=== PATIENT | female | born 1960 | race Caucasian/White ===

== ENCOUNTER 2017-10-03 19:41 | Inpatient (IN) | payer OTHER ==
[~2017-10-03] VITALS: Ht 172.7 cm; Wt 96.9 kg
[2017-10-03 21:04] VITALS: BP 187/87; PULSE 133; RESP 28; TEMP 101.8; O2SAT 94
[2017-10-03 21:07] VITALS: BP 187/87; PULSE 133; RESP 28; TEMP 101.8; O2SAT 94
[2017-10-03 21:37] VITALS: PULSE 125; RESP 28; O2SAT 94
--- NOTE | 2017-10-03 22:29 | PD ---
HPI Chief Complaint: Cold / Flu Symptoms Time Seen by Provider: 22:21 Travel History International Travel<30 days: No Contact w/Intl Traveler<30days: No Traveled to known affect area: No History of Present Illness HPI The patient is a 57-year-old female that complains of a cough, upper airway congestion, fever and sore throat for 24 hours. The fever is generally and low- grade. She is slightly short of breath and has noted wheezing at home. She denies any chest pain. She has a mild, bifrontal/retro-orbital, gradual onset headache. [facility] Past Medical History Diminished Hearing: No Influenza Vaccination: Yes ?: Not Past Surgical History Cholecystectomy: Yes Gynecologic Surgery: Yes (tubal) Social History Alcohol Use: Yes (social) Tobacco Use: No Substance Use: No Allergies-Medications (Allergen,Severity, Reaction): Coded Allergies: amoxicillin (Verified Allergy, Severe, 10/03/17) Review of Systems Except as stated in HPI: all other systems reviewed are Neg Physical Exam Narrative GENERAL: The patient is alert, oriented 3 in moderate apparent distress with her cough and sore throat. Her vital signs show blood pressure 187/87 with heart rate of 133 and respirations 28. SKIN: Focused skin assessment warm/dry. HEAD: Atraumatic. Normocephalic. EYES: Pupils equal and round. No scleral icterus. No injection or drainage. ENT: No nasal bleeding or discharge. Mucous membranes pink and moist. NECK: Trachea midline. No JVD. CARDIOVASCULAR: Regular rate and rhythm. No murmur appreciated. RESPIRATORY: No accessory muscle use. A few scattered wheezes are heard bilaterally. Breath sounds equal bilaterally. GASTROINTESTINAL: Abdomen soft, non-tender, nondistended. Hepatic and splenic margins not palpable. MUSCULOSKELETAL: No obvious deformities. No clubbing. No cyanosis. No edema. NEUROLOGICAL: Awake and alert. No obvious cranial nerve deficits. Motor grossly within normal limits. Normal speech. PSYCHIATRIC: Appropriate mood and affect; insight and judgment normal. Data Data Last Documented VS Vital Signs Date Time Temp Pulse Resp B/P (MAP) Pulse Ox O2 Delivery O2 Flow Rate FiO2 10/03/17 22:45 97 Nasal Cannula 2.00 10/03/17 22:42 10/03/17 21:37 125 28 10/03/17 21:07 101.8 Orders Orders Sepsis Workup Initiated (10/03/17 ) Complete Blood Count With Diff (10/03/17 22:21) Comprehensive Metabolic Panel (10/03/17 22:21) Lactic Acid Sepsis Protocol (10/03/17 22:21) Lipase (10/03/17 22:21) Troponin I (10/03/17 22:21) Urinalysis - C+S If Indicated (10/03/17 22:21) Influenzae A/B Antigen (10/03/17 22:21) Blood Culture (10/03/17 22:21) Chest, Pa & Lat (10/03/17 22:21) Blood Glucose (10/03/17 22:21) Ecg Monitoring (10/03/17 22:21) Iv Access Insert/Monitor (10/03/17 22:21) Oximetry (10/03/17 22:21) Oxygen Administration (10/03/17 22:21) Albuterol-Ipratropium Neb (Duoneb Neb) (10/03/17 22:30) Sodium Chlor 0.9% 1000 Ml Inj (Ns 1000 M (10/03/17 22:45) B-Type Natriuretic Peptide (10/03/17 22:32) Group A Rapid Strep Screen (10/03/17 22:33) Strep Culture (Group A) (10/03/17 22:31) Urine Culture (10/03/17 22:28) Oseltamivir (Tamiflu) (10/03/17 23:30) Ketorolac Inj (Toradol Inj) (10/04/17 00:00) Acetaminophen (Tylenol) (10/04/17 00:00) Oseltamivir (Tamiflu) (10/04/17 09:00) Levofloxacin 750 Mg Premix Inj (Levaquin (10/04/17 00:30) Admit To Inpatient (10/04/17 ) Vital Signs (Adult) Q4H (10/04/17 00:20) Activity Oob With Assistance (10/04/17 00:20) Professional Healthcare Representative / Telemetry .CONTINUOUS (10/04/17 00:20) Intake + Output PAKO.QSHIFT (10/04/17 00:20) Diet Regular Basic (10/04/17 Breakfast) Sodium Chlor 0.9% 1000 Ml Inj (Ns 1000 M (10/04/17 00:20) Sodium Chloride 0.9% Flush (Ns Flush) (10/04/17 00:30) Sodium Chloride 0.9% Flush (Ns Flush) (10/04/17 09:00) Ondansetron Inj (Zofran Inj) (10/04/17 00:30) Comprehensive Metabolic Panel (10/05/17 06:00) Complete Blood Count With Diff (10/05/17 06:00) Scd Bilateral/Knee High PAKO.BID (10/04/17 00:20) Ken Bilateral/Knee High PAKO.QSHIFT (10/04/17 00:23) Acetaminophen (Tylenol) (10/04/17 00:30) Acetamin-Hydrocod 325-5 Mg ([place] 5-325 (10/04/17 00:30) Acetamin-Hydrocod 325-10 Mg ([place] 10-32 (10/04/17 00:30) Docusate Sodium-Senna (Bridget-Colace) (10/04/17 09:00) Magnesium Hydroxide Liq (Milk Of Magnesi (10/04/17 00:30) Sennosides (Senokot) (10/04/17 00:30) Bisacodyl Supp (Dulcolax Supp) (10/04/17 00:30) Lactulose Liq (Lactulose Liq) (10/04/17 00:30) Inpatient Certification (10/04/17 ) Albuterol-Ipratropium Neb (Duoneb Neb) (10/04/17 00:30) Admit Order (Ed Use Only) (10/04/17 00:21) Labs Laboratory Tests Test 10/03/17 22:28 White Blood Count 7.4 TH/MM3 Red Blood Count 4.45 MIL/MM3 Hemoglobin 12.9 GM/DL Hematocrit 38.5 % Mean Corpuscular Volume 86.6 FL Mean Corpuscular Hemoglobin 29.0 PG Mean Corpuscular Hemoglobin Concent 33.5 % Red Cell Distribution Width 13.5 % Platelet Count 253 TH/MM3 Mean Platelet Volume 8.9 FL Neutrophils (%) (Auto) 78.9 % Lymphocytes (%) (Auto) 8.9 % Monocytes (%) (Auto) 8.7 % Eosinophils (%) (Auto) 2.9 % Basophils (%) (Auto) 0.6 % Neutrophils # (Auto) 5.9 TH/MM3 Lymphocytes # (Auto) 0.7 TH/MM3 Monocytes # (Auto) 0.6 TH/MM3 Eosinophils # (Auto) 0.2 TH/MM3 Basophils # (Auto) 0.0 TH/MM3 CBC Comment DIFF FINAL Differential Comment Urine Color ORANGE Urine Turbidity CLEAR Urine pH 8.0 Urine Specific [place] 1.016 Urine Protein TRACE mg/dL Urine Glucose (UA) NEG mg/dL Urine Ketones NEG mg/dL Urine Occult Blood NEG Urine Nitrite POS Urine Bilirubin NEG Urine Leukocyte Esterase NEG Urine RBC 4-9 /hpf Urine WBC 3-5 /hpf Urine WBC Clumps FEW Urine Squamous Epithelial Cells 0-5 /hpf Microscopic Urinalysis Comment CATH-CULTURE IND Blood Urea Nitrogen 13 MG/DL Creatinine 0.86 MG/DL Random Glucose 94 MG/DL Total Protein 8.0 GM/DL Albumin 3.9 GM/DL Calcium Level 8.8 MG/DL Alkaline Phosphatase 73 U/L Aspartate Amino Transf (AST/SGOT) 32 U/L Alanine Aminotransferase (ALT/SGPT) 51 U/L Total Bilirubin 0.6 MG/DL Sodium Level 136 MEQ/L Potassium Level 3.4 MEQ/L Chloride Level 102 MEQ/L Carbon Dioxide Level 25.6 MEQ/L Anion Gap 8 MEQ/L Estimat Glomerular Filtration Rate 68 ML/MIN Lactic Acid Level 1.3 mmol/L Troponin I LESS THAN 0.02 NG/ML B-Type Natriuretic Peptide 25 PG/ML Lipase 101 U/L MDM Medical Decision Making Medical Screen Exam Complete: Yes Emergency Medical Condition: Yes Medical Record Reviewed: Yes Differential Diagnosis Sepsis, pneumonia, bronchitis, bronchospasm, nonspecific viral illness, flu syndrome, electrolyte disorder, hypo-/hyperglycemia Narrative Course The patient has sepsis and flu syndrome. The patient would not do well at home , she is staying in a condo and does not have a nebulizer machine. She will need a nebulizer machine and likely oxygen. She also is somewhat dehydrated and will need IV fluids, she is unlikely to replace her fluids with by mouth. Sepsis Criteria SIRS Criteria (2 or more): Temp > 100.9 or < 96.8, Heart rate over 90, RR > 20 or PaCO2 < 32 Physician Communication Physician Communication I discussed the patient with Dr. Cosme, the patient will be admitted to her. Diagnosis Primary Impression: Sepsis Additional Impression: Flu syndrome Admitting Information Admitting Physician Requests: Admit Lisandro Muller MD Oct 03, 2017 22:29
[2017-10-03 22:42] VITALS: O2SAT 94
[2017-10-03 22:45] VITALS: BP 155/87; PULSE 128; RESP 18; TEMP 101.5; O2SAT 95; O2SAT 97
[2017-10-03] MEDS: RESP: ALBUTEROL 2.5 MG/IPRATROPIUM 0.5 MG NEB (SCH) INH ×3 (22:45→23:04)
[2017-10-03] MEDS: SODIUM CHLOR 0.9% 1000 ML INJ 1,000 ML IV SCH (23:01)
[2017-10-03 23:02] LABS: AUTOMATED NEUTROPHIL # 5.9 TH/MM3 (1.8-7.7); BASOPHIL % 0.6 % (0.0-2.0); EOSINOPHIL # 0.2 TH/MM3 (0-0.4); EOSINOPHIL % 2.9 % (0.0-4.0); HEMATOCRIT 38.5 % (35.0-46.0); HEMOGLOBIN 12.9 GM/DL (11.6-15.3); LYMPH % 8.9 % (9.0-44.0); LYMPHOCYTE # 0.7 TH/MM3 (1.0-4.8); MEAN CELL VOLUME 86.6 FL (80.0-100.0); MEAN CORPUSCULAR HGB CONC 33.5 % (32.0-36.0); MEAN PLATELET VOLUME 8.9 FL (7.0-11.0); MONO % 8.7 % (0.0-8.0); MONOCYTE # 0.6 TH/MM3 (0-0.9); NEUT % 78.9 % (16.0-70.0); PLATELET COUNT 253 TH/MM3 (150-450); RED BLOOD COUNT 4.45 MIL/MM3 (4.00-5.30); RED CELL DISTRIBUTION WIDTH 13.5 % (11.6-17.2); WHITE BLOOD COUNT 7.4 TH/MM3 (4.0-11.0)
[2017-10-03 23:13] LABS: BILIRUBIN, URINE NEG (NEG); BLOOD, URINE NEG (NEG); GLUCOSE,URINE NEG (NEG); KETONE, URINE NEG (NEG); NITRITE,URINE POS (NEG); URINE LEUKOCYTE ESTERASE NEG (NEG)
[2017-10-03 23:17] LABS: CHLORIDE 102 MEQ/L (98-107); SODIUM (NA) 136 MEQ/L (136-145)
[2017-10-03 23:20] LABS: CALCIUM 8.8 MG/DL (8.5-10.1); URINE COLOR ORANGE (YELLW/STRAW)
[2017-10-03 23:21] LABS: ALBUMIN 3.9 GM/DL (3.4-5.0); BICARBONATE 25.6 MEQ/L (21.0-32.0); BLOOD UREA NITROGEN 13 MG/DL (7-18); GLUCOSE,RANDOM 94 MG/DL (74-106)
[2017-10-03 23:22] LABS: SQUAMOUS EPITHELIAL CELL URINE 0-5 /hpf (0-5); WHITE BLOOD CELL CLUMPS FEW
[2017-10-03 23:23] LABS: ALT (GPT) 51 U/L (10-53); AST (GOT) 32 U/L (15-37)
[2017-10-03 23:24] LABS: CREATININE 0.86 MG/DL (0.50-1.00); GLOMERULAR FILTRATION RATE 68 ML/MIN (>89)
[2017-10-03 23:25] LABS: TOTAL BILIRUBIN ADULT 0.6 MG/DL (0.2-1.0)
[2017-10-03 23:26] LABS: ALKALINE PHOSPHATASE 73 U/L (45-117)
--- NOTE | 2017-10-03 23:27 | RADRPT ---
EXAM DATE/TIME: 10/03/2017 23:16 [place] COMPARISON: No previous studies available for comparison. INDICATIONS : Fever MEDICAL HISTORY : Hypothyroidism. Diverticulitis. Gastroesophageal reflux disease. SURGICAL HISTORY : None. ENCOUNTER: Initial ACUITY: 2 days PAIN SCORE: 0/10 LOCATION: Bilateral chest FINDINGS: PA and lateral views of the chest demonstrate the lungs to be symmetrically aerated without evidence of mass, infiltrate or effusion. Scattered calcified granulomata present in the lungs. The cardiomedi astinal contours are unremarkable. Osseous structures are intact. CONCLUSION: 1. No active disease. Remote granulomatous disease. Evans Smith MD on October 03, 2017 at 23:24 Board Certified Radiologist. This report was verified electronically.
[2017-10-03 23:28] LABS: TROPONIN I LESS THAN 0.02 NG/ML (0.02-0.05)
[2017-10-03] MEDS ORDERED: OSELTAMIVIR PHOSPHATE 75 MG CAP PO ONE (23:30)
[2017-10-03 23:50] VITALS: BP 145/85; PULSE 126; RESP 20; TEMP 103; O2SAT 94
[2017-10-04] VITALS (18 sets, daily range): BP systolic 107–138; BP diastolic 49–73; PULSE 95–120; RESP 14–27; TEMP 98.1–100.7; O2SAT 91–97
[2017-10-04] MEDS ORDERED: KETOROLAC TROMETHAMINE 60 MG/2 ML (IM) VIAL IVP ONE
[2017-10-04] MEDS ORDERED: ACETAMINOPHEN 325 MG TAB PO ONE
[2017-10-04] MEDS: SODIUM CHLOR 0.9% 1000 ML INJ 1,000 ML IV SCH ×3 (00:20→21:43)
[2017-10-04] MEDS ORDERED: ACETAMINOPHEN/HYDROcodone 325 MG/10 MG TAB PO PRN (00:30)
[2017-10-04] MEDS ORDERED: MAGNESIUM HYDROXIDE SUSP 30 ML CUP PO PRN (00:30)
[2017-10-04] MEDS ORDERED: SENNOSIDES 8.6 MG TAB PO PRN (00:30)
[2017-10-04] MEDS ORDERED: LACTULOSE SYRUP 20 GM/30 ML CUP PO PRN (00:30)
[2017-10-04] MEDS ORDERED: SODIUM CHLORIDE 0.9% FLUSH 10 ML FLUSH IV FLUSH PRN (00:30)
[2017-10-04] MEDS ORDERED: ACETAMINOPHEN/HYDROcodone 325 MG/5 MG TAB PO PRN (00:30)
[2017-10-04] MEDS ORDERED: BISACODYL 10 MG SUPP RECTAL PRN (00:30)
[2017-10-04] MEDS: LEVOFLOXACIN 750 MG PREMIX INJ 150 ML IV SCH (01:16)
[2017-10-04] MEDS ORDERED: ASPI-516 CHEW (01:26)
[2017-10-04] MEDS ORDERED: CRAN250C3 PO (01:26)
[2017-10-04] MEDS ORDERED: LEVO75TA3 PO (01:26)
[2017-10-04] MEDS ORDERED: KRIL1CAP9 (01:26)
[2017-10-04] MEDS: RESP: ALBUTEROL 2.5 MG/IPRATROPIUM 0.5 MG NEB (PRN) NEB ×4 (07:54→22:36)
[2017-10-04] MEDS: OSELTAMIVIR PHOSPHATE 75 MG CAP PO SCH ×2 (08:36→21:42)
[2017-10-04] MEDS: ACETAMINOPHEN 325 MG TAB PO PRN ×2 (08:36→15:53)
--- NOTE | 2017-10-04 08:49 | HHI.HP ---
[facility] C[facility] M[facility] Admission Diagnosis abscess, flu syndrome Diagnoses: Chief Complaint: Flu like symptoms Travel History International Travel<30 Days: No Contact w/Intl Traveler <30 Da: No Traveled to Known Affected Are: No History of Present Illness This is a pleasant 57 y/o Female who came to ER with complaint of cough, Upper airway congestion, Fever Soret throat for 24 hours. The fever is generally and low-grade. She is slightly short of breath and has noted wheezing at home. She denies any chest pain. She has a mild, bifrontal/retro-orbital, gradual onset headache, she continue with cough has mild to moderate expiratory wheezing, inspiratory crackles on both bases, at this time in ICU but she is a Medical and Surgical patient. good oxygen saturation. continue with fever and tachycardia, continue Metoprolol. Review of Systems Constitutional: DENIES: Fever, Chills, Change in appetite Endocrine: DENIES: Heat/cold intolerance Eyes: DENIES: Blurred vision, Eye pain Respiratory: COMPLAINS OF: Cough Except as stated in HPI: all other systems reviewed are Neg Past Family Social History Past Medical History Hypothyroidism Obesity Nephrolithiasis Past Surgical History Cholecystectomy Tubal Ligation Appendectomy Reported Medications Reported Meds & Active Scripts Active Reported Cranberry (Cranberry Fruit Extract) 250 Mg Capsule 500 Mg PO DAILY Megared [place]-3 Krill Oil (Krill Oil) 500 Mg Cap Aspirin 81 Mg Chew 81 Mg CHEW DAILY Levothyroxine (Levothyroxine Sodium) 75 Mcg Tab 75 Mcg PO DAILY Allergies: Coded Allergies: amoxicillin (Verified Allergy, Severe, 10/03/17) Active Ordered Medications Current Medications Medications (Trade) Dose Ordered Sig/Kala Route Start Time Stop Time Status Last Admin (Tamiflu) 75 mg BID PO 10/04/17 09:00 10/04/17 08:36 (Duoneb Neb) 1 ampule Q4HR NEB PRN NEB 10/04/17 00:30 10/04/17 07:54 Levofloxacin/ Dextrose 150 ml @ 100 mls/hr Q24H IV 10/04/17 01:00 10/04/17 01:16 Sodium Chloride 1,000 ml @ 100 mls/hr Q10H IV 10/04/17 00:20 10/04/17 10:20 (NS Flush) 2 ml UNSCH PRN IV FLUSH 10/04/17 00:30 (NS Flush) 2 ml BID IV FLUSH 10/04/17 09:00 (Zofran Inj) 4 mg Q6H PRN IVP 10/04/17 00:30 (Tylenol) 650 mg Q6H PRN PO 10/04/17 00:30 10/04/17 08:36 ([place] 5-325 Mg) 1 tab Q4H PRN PO 10/04/17 00:30 ([place] 10-325 Mg) 1 tab Q4H PRN PO 10/04/17 00:30 (Bridget-Colace) 1 tab BID PO 10/04/17 09:00 (Milk Of Magnesia Liq) 30 ml Q12H PRN PO 10/04/17 00:30 (Senokot) 17.2 mg Q12H PRN PO 10/04/17 00:30 (Dulcolax Supp) 10 mg DAILY PRN RECTAL 10/04/17 00:30 (Lactulose Liq) 30 ml DAILY PRN PO 10/04/17 00:30 Family History Father of ACS at 51 y/a two sisters with DM II Social History Alcohol abuse occasional Lives with her denies toxic habits. Physical Exam Vital Signs Vital Signs Date Time Temp Pulse Resp B/P (MAP) Pulse Ox O2 Delivery O2 Flow Rate FiO2 10/04/17 07:55 93 10/04/17 05:00 99.4 96 14 107/49 (68) 97 10/04/17 03:41 104 19 110/49 (69) 96 10/04/17 02:27 114 10/04/17 01:45 99.3 114 20 113/57 (75) 95 10/04/17 01:44 10/04/17 01:09 99.8 120 18 138/58 (84) 95 Nasal Cannula 2.00 10/03/17 23:50 103.0 126 20 145/85 (105) 94 Nasal Cannula 2.00 10/03/17 22:45 97 Nasal Cannula 2.00 10/03/17 22:45 101.5 128 18 155/87 (109) 95 Nasal Cannula 2.00 10/03/17 22:42 98 Nasal Cannula 2.00 10/03/17 22:42 94 Nasal Cannula 2.00 10/03/17 21:37 125 28 94 Nasal Cannula 2.00 10/03/17 21:37 28 94 Room Air 2.00 10/03/17 21:07 101.8 133 28 187/87 (120) 94 10/03/17 21:04 101.8 133 28 187/87 (120) 94 Physical Exam GENERAL: Obesity. no acute distress. SKIN: Focused skin assessment warm/dry. HEAD: Atraumatic. Normocephalic. EYES: Pupils equal and round. No scleral icterus. No injection or drainage. ENT: No nasal bleeding or discharge. Mucous membranes pink and moist. NECK: Trachea midline. No JVD. CARDIOVASCULAR: Regular rate and rhythm. No murmur appreciated. RESPIRATORY: Decreased breath sounds bilateral, Mild expiratory wheezing and inspiratory crackles on both bases. GASTROINTESTINAL: Abdomen soft, non-tender, nondistended. Hepatic and splenic margins not palpable. MUSCULOSKELETAL: No obvious deformities. No clubbing. No cyanosis. No edema. NEUROLOGICAL: Awake and alert. No obvious cranial nerve deficits. Motor grossly within normal limits. Normal speech. PSYCHIATRIC: Appropriate mood and affect; insight and judgment normal. Laboratory Laboratory Tests Test 10/03/17 22:28 White Blood Count 7.4 Red Blood Count 4.45 Hemoglobin 12.9 Hematocrit 38.5 Mean Corpuscular Volume 86.6 Mean Corpuscular Hemoglobin 29.0 Mean Corpuscular Hemoglobin Concent 33.5 Red Cell Distribution Width 13.5 Platelet Count 253 Mean Platelet Volume 8.9 Neutrophils (%) (Auto) 78.9 Lymphocytes (%) (Auto) 8.9 Monocytes (%) (Auto) 8.7 Eosinophils (%) (Auto) 2.9 Basophils (%) (Auto) 0.6 Neutrophils # (Auto) 5.9 Lymphocytes # (Auto) 0.7 Monocytes # (Auto) 0.6 Eosinophils # (Auto) 0.2 Basophils # (Auto) 0.0 CBC Comment DIFF FINAL Differential Comment Urine Color ORANGE Urine Turbidity CLEAR Urine pH 8.0 Urine Specific [place] 1.016 Urine Protein TRACE Urine Glucose (UA) NEG Urine Ketones NEG Urine Occult Blood NEG Urine Nitrite POS Urine Bilirubin NEG Urine Leukocyte Esterase NEG Urine RBC 4-9 Urine WBC 3-5 Urine WBC Clumps FEW Urine Squamous Epithelial Cells 0-5 Microscopic Urinalysis Comment CATH-CULTURE IND Blood Urea Nitrogen 13 Creatinine 0.86 Random Glucose 94 Total Protein 8.0 Albumin 3.9 Calcium Level 8.8 Alkaline Phosphatase 73 Aspartate Amino Transf (AST/SGOT) 32 Alanine Aminotransferase (ALT/SGPT) 51 Total Bilirubin 0.6 Sodium Level 136 Potassium Level 3.4 Chloride Level 102 Carbon Dioxide Level 25.6 Anion Gap 8 Estimat Glomerular Filtration Rate 68 Lactic Acid Level 1.3 Troponin I LESS THAN 0.02 B-Type Natriuretic Peptide 25 Lipase 101 Date/Time Source Procedure Growth Status 10/03/17 22:31 Blood Peripheral Aerobic Blood Culture Pending Received 10/03/17 22:31 Blood Peripheral Anaerobic Blood Culture Pending Received 10/03/17 22:31 Throat Group A Streptococcus Screen Pending Received 10/03/17 22:28 Urine Catheterized Urine Urine Culture Pending Received Result Diagram: 10/03/17222710/03/172227 Imaging Last Impressions Chest X-Ray 10/03/172220 Signed Impressions: Service Date/Time: Tuesday, October 03, 2017 23:16 - CONCLUSION: 1. No active disease. Remote granulomatous disease. Evans Smith MD Caprini VTE Risk Assessment Caprini VTE Risk Assessment: Mod/High Risk (score >= 2) Caprini Risk Assessment Model Point Value = 1 Point Value = 2 Point Value = 3 Point Value = 5 Age 41-60 Minor surgery BMI > 25 kg/m2 Swollen legs Varicose veins or History of unexplained or recurrent spontaneous Oral contraceptives or hormone replacement Sepsis (< 1 month) Serious lung disease, including pneumonia (< 1 month) Abnormal pulmonary function Acute myocardial infarction Congestive heart failure (< 1 month) History of inflammatory bowel disease Medical patient at bed rest Age 61-74 Arthroscopic surgery Major open surgery (> 45 min) Laparoscopic surgery (> 45 min) Malignancy Confined to bed (> 72 hours) Immobilizing plaster cast Central venous access Age >= 75 History of VTE Family history of VTE Factor V Leiden Prothrombin [id number] Lupus anticoagulant Anticardiolipin antibodies Elevated serum homocysteine Heparin-induced thrombocytopenia Other congenital or acquired thrombophilia Stroke (< 1 month) Elective arthroplasty Hip, pelvis, or leg fracture Acute spinal cord injury (< 1 month) Prophylaxis Regimen Total Risk Factor Score Risk Level Prophylaxis Regimen 0-1 Low Early ambulation 2 Moderate Order ONE of the following: *Sequential Compression Device (SCD) *Heparin 5000 units SQ BID 3-4 Higher Order ONE of the following medications: *Heparin 5000 units SQ TID *Enoxaparin/Lovenox 40 mg SQ daily (WT < 150 kg, CrCl > 30 mL/min) *Enoxaparin/Lovenox 30 mg SQ daily (WT < 150 kg, CrCl > 10-29 mL/min) *Enoxaparin/Lovenox 30 mg SQ BID (WT < 150 kg, CrCl > 30 mL/min) AND/OR *Sequential Compression Device (SCD) 5 or more Highest Order ONE of the following medications: *Heparin 5000 units SQ TID (Preferred with Epidurals) *Enoxaparin/Lovenox 40 mg SQ daily (WT < 150 kg, CrCl > 30 mL/min) *Enoxaparin/Lovenox 30 mg SQ daily (WT < 150 kg, CrCl > 10-29 mL/min) *Enoxaparin/Lovenox 30 mg SQ BID (WT < 150 kg, CrCl > 30 mL/min) AND *Sequential Compression Device (SCD) Assessment and Plan Assessment and Plan 1. Sepsis, fever 103F, Tachycardia, Tachypnea, with Influenza A positive and Positive Urinalysis following blood cultures and urine culture continue Vancomycin, Bronchodilator, Mucolytic and incentive spirometry 2. Influenza A continue Tamiflu 3. Dehydration improving continue IV fluids 4. Hypothyroidism to continue Hormonal replacement. 5. Obesity strongly recommended diet and exercise as outpatient. 6. Hypokalemia replaced and following complete laboratory follow blood and Urine culture continue antibiotics DVT prophylaxis with Lovenox Code Status Full code. Discussed Condition With Patient and Nurse Physician Certification 2 Midnight Certification Type: Admission for Inpatient Services Order for Inpatient Services The services are ordered in accordance with Medicare regulations or non- Medicare payer requirements, as applicable. In the case of services not specified as inpatient-only, they are appropriately provided as inpatient services in accordance with the 2-midnight benchmark. Estimated LOS (days): 3 days is the estimated time the patient will need to remain in the hospital, assuming treatment plan goals are met and no additional complications. Post-Hospital Plan: Home Ritchie Martines MD Oct 04, 2017 08:49
[2017-10-04] MEDS: SODIUM CHLORIDE 0.9% FLUSH 10 ML FLUSH IV FLUSH SCH ×2 (09:00→21:42)
[2017-10-04] MEDS: DOCUSATE SODIUM 50 MG/SENNA 8.6 MG TAB PO SCH ×2 (09:00→21:00)
[2017-10-04 17:02] LABS: CHOLESTEROL 150 MG/DL (120-200); TRIGLYCERIDES 61 MG/DL (42-150)
[2017-10-04 17:27] LABS: CHOLESTEROL/ HDL RATIO 3.19 RATIO; FREE T4 1.21 NG/DL (0.76-1.46); HDL CHOLESTEROL 46.9 MG/DL (40.0-60.0); LDL CHOLESTEROL 91 MG/DL (0-99)
[2017-10-04 17:31] LABS: FOLATE GREATER THAN 20.0 NG/ML (3.1-17.5)
[2017-10-04] MEDS: guaiFENesin/DEXTROMETHORPHAN 200 MG/20 MG/10 ML CUP PO PRN (23:30)
[2017-10-05] VITALS (8 sets, daily range): BP systolic 132–151; BP diastolic 73–94; PULSE 84–108; RESP 14–22; TEMP 97.7–99.4; O2SAT 92–99
[2017-10-05] MEDS: LEVOFLOXACIN 750 MG PREMIX INJ 150 ML IV SCH (00:44)
[2017-10-05 06:15] LABS: CHLORIDE 107 MEQ/L (98-107); SODIUM (NA) 141 MEQ/L (136-145)
[2017-10-05 06:17] LABS: AUTOMATED NEUTROPHIL # 1.6 TH/MM3 (1.8-7.7); BASOPHIL % 0.6 % (0.0-2.0); EOSINOPHIL # 0.1 TH/MM3 (0-0.4); HEMATOCRIT 31.6 % (35.0-46.0); HEMOGLOBIN 10.9 GM/DL (11.6-15.3); LYMPH % 24.7 % (9.0-44.0); LYMPHOCYTE # 0.7 TH/MM3 (1.0-4.8); MEAN CELL VOLUME 87.3 FL (80.0-100.0); MEAN CORPUSCULAR HEMOGLOBIN 30.1 PG (27.0-34.0); MEAN CORPUSCULAR HGB CONC 34.5 % (32.0-36.0); MEAN PLATELET VOLUME 8.5 FL (7.0-11.0); MONO % 17.2 % (0.0-8.0); MONOCYTE # 0.5 TH/MM3 (0-0.9); NEUT % 55.5 % (16.0-70.0); PLATELET COUNT 179 TH/MM3 (150-450); RED BLOOD COUNT 3.62 MIL/MM3 (4.00-5.30); RED CELL DISTRIBUTION WIDTH 14.4 % (11.6-17.2); WHITE BLOOD COUNT 2.9 TH/MM3 (4.0-11.0)
[2017-10-05 06:18] LABS: CALCIUM 8.4 MG/DL (8.5-10.1)
[2017-10-05] MEDS: guaiFENesin/DEXTROMETHORPHAN 200 MG/20 MG/10 ML CUP PO PRN ×3 (06:18→20:47)
[2017-10-05] MEDS: ACETAMINOPHEN 325 MG TAB PO PRN ×2 (06:18→20:53)
[2017-10-05] MEDS: SODIUM CHLOR 0.9% 1000 ML INJ 1,000 ML IV SCH ×2 (06:20→12:42)
[2017-10-05 06:28] LABS: ALBUMIN 3.1 GM/DL (3.4-5.0); ALKALINE PHOSPHATASE 56 U/L (45-117); ALT (GPT) 55 U/L (10-53); AST (GOT) 45 U/L (15-37); BICARBONATE 25.3 MEQ/L (21.0-32.0); BLOOD UREA NITROGEN 6 MG/DL (7-18); CREATININE 0.56 MG/DL (0.50-1.00); GLOMERULAR FILTRATION RATE 112 ML/MIN (>89); GLUCOSE,RANDOM 96 MG/DL (74-106); MAGNESIUM 2.1 MG/DL (1.5-2.5); PHOSPHORUS 2.7 MG/DL (2.5-4.9); TOTAL BILIRUBIN ADULT 0.5 MG/DL (0.2-1.0); TOTAL PROTEIN 6.9 GM/DL (6.4-8.2)
[2017-10-05] MEDS: OSELTAMIVIR PHOSPHATE 75 MG CAP PO SCH ×2 (08:02→20:47)
[2017-10-05] MEDS: ASPIRIN 81 MG CHEW TAB CHEW SCH (08:02)
[2017-10-05] MEDS: DOCUSATE SODIUM 50 MG/SENNA 8.6 MG TAB PO SCH ×3 (08:03→20:54)
[2017-10-05] MEDS: SODIUM CHLORIDE 0.9% FLUSH 10 ML FLUSH IV FLUSH SCH ×2 (08:03→20:54)
[2017-10-05] MEDS ORDERED: LEVOTHYROXINE SODIUM 75 MCG TAB PO SCH (09:00)
[2017-10-05] MEDS ORDERED: POTASSIUM CHLORIDE 10 MEQ CONTROLLED RELEASE TAB PO ONE ×2 (14:00→15:00)
--- NOTE | 2017-10-05 14:25 | HHI.PR ---
Subjective Remarks Follow-up influenza. Patient seen and examined, lying in bed comfortably. Afebrile overnight. Continued cough, controlled with: Robitussin. Vital signs are stable. Eating well, denies any nausea or vomiting. Continue Tamiflu and antibiotics. Objective Vitals Vital Signs Date Time Temp Pulse Resp B/P (MAP) Pulse Ox O2 Delivery O2 Flow Rate FiO2 10/05/17 08:01 98 10/05/17 08:00 98.7 92 16 138/76 (96) 95 10/05/17 04:00 99.4 104 22 138/82 (100) 93 10/05/17 00:00 98.3 100 22 132/79 (96) 92 10/04/17 20:00 97 21 10/04/17 20:00 95 10/04/17 20:00 98.1 95 20 130/72 (91) 92 10/04/17 18:55 94 21 10/04/17 15:40 105 10/04/17 15:30 100.7 102 20 138/72 (94) 95 I/O 10/04/17 10/04/17 10/04/17 10/05/17 10/05/17 10/05/17 06:59 14:59 22:59 06:59 14:59 22:59 Intake Total 2000 ml 80 ml 325 ml 2620 ml Output Total 0 ml 200 ml Balance 2000 ml -120 ml 325 ml 2620 ml Intake Oral 80 ml 1500 ml IV Total 2000 ml 325 ml 1120 ml Output Urine Total 0 ml 200 ml # Voids 3 6 # Bowel Movements 0 0 Result Diagram: 10/05/17 0535 10/05/17 0535 Imaging Last Impressions Chest X-Ray 10/03/171 Signed Impressions: Service Date/Time: Tuesday, October 03, 2017 23:16 - CONCLUSION: 1. No active disease. Remote granulomatous disease. Evans Smith MD Objective Remarks GENERAL: Well-nourished, well-developed obese female patient in NAD. SKIN: Warm and dry. No rash. HEAD: Normocephalic. Atraumatic. EYES: Pupils equal and round. No scleral icterus. No injection or drainage. ENT: No nasal bleeding or discharge. Mucous membranes pink and moist. NECK: Supple. Trachea midline. CARDIOVASCULAR: Regular rate and rhythm. S1, S2 noted. No murmur appreciated. RESPIRATORY: No accessory muscle use. Rhonchi throughout posterior lower lobes. Breath sounds equal bilaterally. GASTROINTESTINAL: Abdomen soft, non-tender, nondistended. Normoactive bowel sounds x4. MUSCULOSKELETAL: No obvious deformities. Extremities without clubbing, cyanosis , or edema. NEUROLOGICAL: Awake and alert. No obvious cranial nerve deficits. Motor grossly within normal limits. 5/5 muscle strength in bilateral upper and lower extremities. Normal speech. PSYCHIATRIC: Appropriate mood and affect; insight and judgment normal. A/P Assessment and Plan This is a pleasant 57 y/o Female who came to ER with complaint of cough, Upper airway congestion, Fever Sore throat for 24 hours. Sepsis, fever 103F, Tachycardia, Tachypnea, with Influenza A positive and abnormal UA Influenza A Dehydration suspect secondary to above. Blood cultures drawn and no growth to date. Continue to follow. Urine no growth over twenty-four hours. Afebrile overnight. Chest x-ray reviewed showing no acute disease. Continue Vancomycin, Bronchodilator, Mucolytic and incentive spirometry. Robitussin for cough. Duo nebs as needed. Nasal aspirate positive for influenza A antigen. Throat culture for group A strep negative. Continue IV fluid. Continue Tamiflu. Supportive care. Supplemental O2 as needed, controlled on room air. Encourage by mouth intake as needed. Zofran as needed for nausea or vomiting. Hypothyroidism to continue Hormonal replacement. Obesity strongly recommended diet and exercise as outpatient. Hypokalemia: Status post replacement. K3.4. Continue to monitor BMP. DVT prophylaxis with Lovenox Cheryle Vera Oct 05, 2017 14:25
[2017-10-05 17:07] LABS: HEMOGLOBIN A1C 6.1 % (4.3-6.0)
[2017-10-05] MEDS: RESP: ALBUTEROL 2.5 MG/IPRATROPIUM 0.5 MG NEB (PRN) NEB (20:46)
[2017-10-05] MEDS: ONDANSETRON HCL 4 MG/2 ML VIAL IVP PRN (20:53)
[2017-10-06] VITALS: BP 147/92; PULSE 98; RESP 20; TEMP 96.4; O2SAT 94
[2017-10-06] MEDS: LEVOFLOXACIN 750 MG PREMIX INJ 150 ML IV SCH (00:34)
[2017-10-06] MEDS: SODIUM CHLOR 0.9% 1000 ML INJ 1,000 ML IV SCH ×2 (00:37→12:20)
[2017-10-06] MEDS: guaiFENesin/DEXTROMETHORPHAN 200 MG/20 MG/10 ML CUP PO PRN ×2 (00:40→05:39)
[2017-10-06 04:00] VITALS: BP 162/98; PULSE 108; RESP 20; TEMP 96.3; O2SAT 92
[2017-10-06] MEDS ORDERED: LEVOTHYROXINE SODIUM 50 MCG TAB PO SCH (06:00)
[2017-10-06 06:45] LABS: BASOPHIL % 0.8 % (0.0-2.0); EOSINOPHIL # 0.1 TH/MM3 (0-0.4); EOSINOPHIL % 3.1 % (0.0-4.0); HEMATOCRIT 34.1 % (35.0-46.0); HEMOGLOBIN 11.2 GM/DL (11.6-15.3); LYMPH % 20.6 % (9.0-44.0); LYMPHOCYTE # 0.9 TH/MM3 (1.0-4.8); MEAN CELL VOLUME 87.5 FL (80.0-100.0); MEAN CORPUSCULAR HEMOGLOBIN 28.8 PG (27.0-34.0); MEAN CORPUSCULAR HGB CONC 32.9 % (32.0-36.0); MEAN PLATELET VOLUME 8.2 FL (7.0-11.0); MONOCYTE # 0.6 TH/MM3 (0-0.9); NEUT % 61.5 % (16.0-70.0); PLATELET COUNT 201 TH/MM3 (150-450); RED CELL DISTRIBUTION WIDTH 13.5 % (11.6-17.2); WHITE BLOOD COUNT 4.6 TH/MM3 (4.0-11.0)
[2017-10-06 07:01] LABS: BICARBONATE 28.1 MEQ/L (21.0-32.0); CALCIUM 8.3 MG/DL (8.5-10.1)
[2017-10-06 07:05] LABS: CREATININE 0.75 MG/DL (0.50-1.00)
[2017-10-06] MEDS ORDERED: POTASSIUM CHLORIDE 10 MEQ CONTROLLED RELEASE TAB PO ONE (07:15)
[2017-10-06 08:00] VITALS: BP 144/82; PULSE 96; RESP 18; TEMP 98.3; O2SAT 93
[2017-10-06 08:01] VITALS: O2SAT 93
[2017-10-06] MEDS: ONDANSETRON HCL 4 MG/2 ML VIAL IVP PRN (08:10)
[2017-10-06] MEDS: OSELTAMIVIR PHOSPHATE 75 MG CAP PO SCH (08:11)
[2017-10-06] MEDS: DOCUSATE SODIUM 50 MG/SENNA 8.6 MG TAB PO SCH (08:11)
[2017-10-06] MEDS: ASPIRIN 81 MG CHEW TAB CHEW SCH (08:11)
[2017-10-06] MEDS: SODIUM CHLORIDE 0.9% FLUSH 10 ML FLUSH IV FLUSH SCH (08:11)
[2017-10-06] MEDS ORDERED: OSEL75 PO (11:27)
--- NOTE | 2017-10-06 11:28 | HHI.DS ---
Discharge Summary Admission Date Oct 04, 2017 at 00:27 Discharge Date: Oct 06, 2017 Admitting Diagnosis abscess, flu syndrome (1) Flu syndrome ICD Code: J11.1 - Influenza due to unidentified influenza virus with other respiratory manifestations Status: Acute Procedures None Brief History - From Admission This is a pleasant 57 y/o Female who came to ER with complaint of cough, Upper airway congestion, Fever Soret throat for 24 hours. The fever is generally and low-grade. She is slightly short of breath and has noted wheezing at home. She denies any chest pain. She has a mild, bifrontal/retro-orbital, gradual onset headache, she continue with cough has mild to moderate expiratory wheezing, inspiratory crackles on both bases, at this time in ICU but she is a Medical and Surgical patient. good oxygen saturation. continue with fever and tachycardia, continue Metoprolol. CBC/BMP: 10/06/17 0630 10/06/17 0630 Significant Findings Laboratory Tests Test 10/03/17 22:28 10/04/17 13:21 10/05/17 05:35 10/06/17 06:30 Neutrophils (%) (Auto) 78.9 % (16.0-70.0) Lymphocytes (%) (Auto) 8.9 % (9.0-44.0) Monocytes (%) (Auto) 8.7 % (0.0-8.0) 17.2 % (0.0-8.0) 14.0 % (0.0-8.0) Lymphocytes # (Auto) 0.7 TH/MM3 (1.0-4.8) 0.7 TH/MM3 (1.0-4.8) 0.9 TH/MM3 (1.0-4.8) Urine Color ORANGE (YELLW/STRAW) Urine Nitrite POS (NEG) Urine RBC 4-9 /hpf (0-3) Urine WBC Clumps FEW (NONE) Potassium Level 3.4 MEQ/L (3.5-5.1) 3.4 MEQ/L (3.5-5.1) 3.2 MEQ/L (3.5-5.1) Estimat Glomerular Filtration Rate 68 ML/MIN (>89) 80 ML/MIN (>89) Troponin I LESS THAN 0.02 NG/ML Hemoglobin A1c 6.1 % (4.3-6.0) Vitamin B12 Level 1691 PG/ML (193-986) Folate GREATER THAN 20.0 NG/ML Thyroid Stimulating Hormone 3rd Gen 0.048 uIU/ML (0.358-3.740) White Blood Count 2.9 TH/MM3 (4.0-11.0) Red Blood Count 3.62 MIL/MM3 (4.00-5.30) 3.90 MIL/MM3 (4.00-5.30) Hemoglobin 10.9 GM/DL (11.6-15.3) 11.2 GM/DL (11.6-15.3) Hematocrit 31.6 % (35.0-46.0) 34.1 % (35.0-46.0) Neutrophils # (Auto) 1.6 TH/MM3 (1.8-7.7) Blood Urea Nitrogen 6 MG/DL (7-18) 5 MG/DL (7-18) Albumin 3.1 GM/DL (3.4-5.0) Calcium Level 8.4 MG/DL (8.5-10.1) 8.3 MG/DL (8.5-10.1) Aspartate Amino Transf (AST/SGOT) 45 U/L (15-37) Alanine Aminotransferase (ALT/SGPT) 55 U/L (10-53) Random Glucose 107 MG/DL (74-106) Imaging Last Impressions Chest X-Ray 10/03/171 Signed Impressions: Service Date/Time: Tuesday, October 03, 2017 23:16 - CONCLUSION: 1. No active disease. Remote granulomatous disease. Evans Smith MD PE at Discharge GENERAL: Well-nourished, well-developed obese female patient in [facility]. SKIN: Warm and dry. No rash. HEAD: Normocephalic. Atraumatic. EYES: Pupils equal and round. No scleral icterus. No injection or drainage. ENT: No nasal bleeding or discharge. Mucous membranes pink and moist. NECK: Supple. Trachea midline. CARDIOVASCULAR: Regular rate and rhythm. S1, S2 noted. No murmur appreciated. RESPIRATORY: No accessory muscle use. Rhonchi throughout posterior lower lobes. Breath sounds equal bilaterally. GASTROINTESTINAL: Abdomen soft, non-tender, nondistended. Normoactive bowel sounds x4. MUSCULOSKELETAL: No obvious deformities. Extremities without clubbing, cyanosis , or edema. NEUROLOGICAL: Awake and alert. No obvious cranial nerve deficits. Motor grossly within normal limits. 5/5 muscle strength in bilateral upper and lower extremities. Normal speech. PSYCHIATRIC: Appropriate mood and affect; insight and judgment normal. Hospital Course This Is a 57-year-old female who originally presented to the hospital because of cough, congestion, fever, sore throat. Patient was found to have acute influenza A infection. Patient originally met sepsis criteria with fever , tachycardia, influenza. Patient was admitted the hospital with Tamiflu, symptomatic treatment. Patient tolerated treatment well. At time of evaluating today she has minimal cough. Denies any fever, chills, sore throat. She has had some mild nausea whenever she eats or drinks dairy products. However she does eat crackers and does not have any problems. Patient clinically improved at this time. Patient is eager to go home. Will plan discharge accordingly. Pt Condition on Discharge: Stable Discharge Disposition: Discharge Home Discharge Time: > 30 minutes Discharge Instructions DIET: Follow Instructions for: As Tolerated, No Restrictions Activities you can perform: Regular-No Restrictions Follow up Referrals: PCP Follow-up - 1 Week New Medications: Oseltamivir (Tamiflu) 75 Mg Cap 75 MG PO BID for Influenza inf for 3 Days, #6 CAP Continued Medications: Aspirin (Aspirin) 81 Mg Chew 81 MG CHEW DAILY, TAB 0 Refills Cranberry Fruit Extract (Cranberry) 250 Mg Capsule 500 MG PO DAILY Krill Oil (Megared [place]-3 Krill Oil) 500 Mg Cap Levothyroxine (Levothyroxine) 75 Mcg Tab 75 MCG PO DAILY for Thyroid, #30 TAB 0 Refills Ricardo Muller Oct 06, 2017 11:28
--- NOTE | 2017-10-06 11:29 | HHI.DCPOC ---
Discharge Care Plan Diagnosis: (1) Flu syndrome Goals to Promote Your Health * To prevent worsening of your condition and complications * To maintain your health at the optimal level Directions to Meet Your Goals Take your medications as prescribed Follow your dietary instruction Follow activity as directed Keep your appointments as scheduled Take your immunizations and boosters as scheduled If your symptoms worsen call your PCP, if no PCP go to Urgent Care Center or Emergency Room Smoking is Dangerous to Your Health. Avoid second hand smoke Call the 24-hour hour crisis hotline for domestic abuse at Ricardo Muller Oct 06, 2017 11:28
[2017-10-06 12:00] VITALS: BP 141/92; PULSE 91; RESP 14; TEMP 98.7; O2SAT 94
== END 2017-10-06 15:12 | disposition home or self-care (01) | DRG 872 ==
LOC: PHED 19:41 → PHEDA 10-04 00:27 → PHICU 10-04 01:32 → PH3A 10-04 14:53
PROVIDERS: ADMIT Hospitalist; ATTEND Hospitalist
DX: A41.9 Sepsis, unspecified organism (principal); E03.9 Hypothyroidism, unspecified; E86.0 Dehydration; J10.1 Influenza due to other identified influenza virus with other respiratory manifestations; R06.2 Wheezing; R00.0 Tachycardia, unspecified; F10.10 Alcohol abuse, uncomplicated; E87.6 Hypokalemia; E66.9 Obesity, unspecified; Z68.33 Body mass index [BMI] 33.0-33.9, adult; R06.82 Tachypnea, not elsewhere classified
CPT/HCPCS: 71046; 80048; 80053; 80061; 81001; 82607; 82746; 83036; 83605; 83690; 83735; 83880; 84100; 84439; 84443; 84484; 85025; 87040; 87081; 87086; 87804; 87880; 94640; 94664; 96361; 96374; J1885; J1956; J2405; J7030